=== PATIENT | male | born 1945 | race Two or more races ===

== ENCOUNTER → 2018-11-23 | Outpatient (CLI) | payer OTHER | END | disposition home or self-care (01) | LOC: SONOGRAMA 07:40 → MAMO-SONO 08:15 | DX: R10.11 Right upper quadrant pain (principal) ==

== ENCOUNTER 2019-02-24 08:17 | Outpatient (CLI) | payer OTHER | END 2019-02-24 08:29 | disposition home or self-care (01) | LOC: NUCLEAR 08:17 | DX: C43.52 Malignant melanoma of skin of breast (principal) | CPT/HCPCS: 78816; A9552 ==

== ENCOUNTER 2019-08-11 07:10 | Outpatient (CLI) | payer OTHER | END 2019-08-11 07:15 | disposition home or self-care (01) | LOC: TOM 07:10 | DX: C43.62 Malignant melanoma of left upper limb, including shoulder (principal) ==

== ENCOUNTER 2020-10-02 08:26 | Outpatient (CLI) | payer OTHER | END 2020-10-02 08:28 | disposition home or self-care (01) | LOC: NUCLEAR 08:26 | PROVIDERS: ATTEND Internal Medicine | DX: C43.62 Malignant melanoma of left upper limb, including shoulder (principal) | CPT/HCPCS: 78815; A9552 ==

== ENCOUNTER 2020-11-15 07:19 | Outpatient (CLI) | payer OTHER | END 2020-11-15 07:27 | disposition home or self-care (01) | LOC: SONOGRAMA 07:19 → MAMO-SONO 07:45 | DX: C43.62 Malignant melanoma of left upper limb, including shoulder (principal); R59.0 Localized enlarged lymph nodes ==

== ENCOUNTER 2021-04-16 10:36 | Outpatient (CLI) | payer OTHER | END 2021-04-16 10:50 | disposition home or self-care (01) | LOC: SONOGRAMA 10:36 → MAMO-SONO 10:45 → SONOGRAMA 10:50 | PROVIDERS: ATTEND Surgery Surgical Oncology | DX: R22.1 Localized swelling, mass and lump, neck (principal); C43.4 Malignant melanoma of scalp and neck; C43.62 Malignant melanoma of left upper limb, including shoulder ==

== ENCOUNTER 2021-08-20 10:01 | Outpatient (CLI) | payer OTHER | END 2021-08-20 10:05 | disposition home or self-care (01) | LOC: RAD 10:01 | PROVIDERS: ATTEND Internal Medicine Nephrology | DX: N18.6 End stage renal disease (principal); M54.50 Low back pain, unspecified ==

== ENCOUNTER 2022-02-20 09:22 | Outpatient (CLI) | payer OTHER | END 2022-02-20 09:29 | disposition home or self-care (01) | LOC: RAD 09:22 | PROVIDERS: ATTEND Internal Medicine Nephrology | DX: M25.532 Pain in left wrist (principal) ==

== ENCOUNTER 2022-02-27 07:04 | Outpatient (CLI) | payer OTHER | END 2022-02-27 07:05 | disposition home or self-care (01) | LOC: NUCLEAR 07:04 | PROVIDERS: ATTEND Internal Medicine Nephrology | DX: M79.642 Pain in left hand (principal); L03.114 Cellulitis of left upper limb | CPT/HCPCS: 78315; A9503 ==

== ENCOUNTER 2022-03-04 07:33 | Outpatient (CLI) | payer OTHER | END 2022-03-04 07:43 | disposition home or self-care (01) | LOC: TOM 07:33 | PROVIDERS: ATTEND Internal Medicine Nephrology | DX: N18.6 End stage renal disease (principal) ==

== ENCOUNTER 2022-05-13 07:09 | Outpatient (CLI) | payer OTHER | END 2022-05-13 07:18 | disposition home or self-care (01) | LOC: RAD 07:09 | PROVIDERS: ATTEND Surgery Surgical Oncology | DX: C43.4 Malignant melanoma of scalp and neck (principal); C43.62 Malignant melanoma of left upper limb, including shoulder ==

== ENCOUNTER 2024-08-30 11:47 | Outpatient (CLI) | payer OTHER | END 2024-08-30 11:49 | disposition home or self-care (01) | LOC: RAD 11:47 | DX: N18.6 End stage renal disease (principal) ==

== ENCOUNTER 2024-11-23 10:01 | Outpatient (CLI) | payer OTHER | END 2024-11-23 10:02 | disposition home or self-care (01) | LOC: RAD 10:01 | DX: N18.6 End stage renal disease (principal); R53.83 Other fatigue ==

== ENCOUNTER 2024-12-08 11:09 | Outpatient (CLI) | payer OTHER | END 2024-12-08 11:11 | disposition home or self-care (01) | LOC: RAD 11:09 | DX: M25.512 Pain in left shoulder (principal) ==